=== PATIENT | female | born 1955 | race African-American/Black ===

== ENCOUNTER 2017-04-02 14:14 | Inpatient (IN) ==
[2017-04-02] MEDS ORDERED: ALBUTEROL 2.5 MG/3 ML NEB RESP TX STA ×2 (16:33→16:35)
[2017-04-02 16:47] LABS: Basophils % 0.2 % (0.0-0.8); Eosinophils % 0.2 % (0.00-10.9); Hematocrit 37.5 VOL% (35.7-47.0); Hemoglobin 13.4 GM/DL (12.0-16.0); Immature Granulocytes % 0.7 %; Immature Granulocytes Absolute 0.06 #; Lymphocytes # 1.1 10*3/uL (1.4-4.0); Lymphocytes % 11.5 % (21.3-54.2); Mean Corpuscular HGB Conc 35.7 GM/DL (32-36); Mean Corpuscular Hemoglobin 32 PG (27-34); Mean Corpuscular Volume 90.6 FL (87-102); Mean Platelet Volume 10.7 FL (9.6-12.0); Monocytes # 0.5 10*3/uL (0.11-0.8); Monocytes % 5.2 % (1.7-12.7); Neutrophils # 7.5 10*3/uL (1.4-7.4); Neutrophils % 82.2 % (38.7-73.9); Platelet Count 139 T/CUMM (130-400); Red Blood Count 4.14 MC/CUMM (3.8-5.5); Red Cell Distribution Width 12.3 % (9.3-17.3); White Blood Count 9.2 T/CUMM (4-12)
[2017-04-02] MEDS ORDERED: methylPREDNISolone SOD SUC 125 MG/2 ML VIAL IV STA (16:49)
[2017-04-02 16:56] LABS: PT Patient Result 10.8 SECS; Partial Thromboplastin Time 28.2 SECS (0-40)
[2017-04-02 17:09] LABS: Alanine Aminotransferase 89 U/L (13-56); Albumin 3.8 G/DL (3.4-5.0); Alkaline Phosphatase 97 U/L (45-117); Aspartate Amino Transferase 104 U/L (0-37); Blood Urea Nitrogen 18 MG/DL (7-18); Calcium 8.7 MG/DL (8.5-10.1); Glucose 97 MG/DL (74-106); Magnesium 1.7 MG/DL (1.8-2.4); Osmolality,Calculated 245.1 MOS/KG (273-304); Potassium 4.4 MMOL/L (3.5-5.1); Sodium 121 MMOL/L (136-145); Total Protein 8.8 G/DL (6.4-8.3); Troponin I Only < 0.015 NG/ML (0.00-0.045)
[2017-04-02] MEDS ORDERED: methylPREDNISolone SOD SUC 125 MG/2 ML VIAL ONE (17:12)
[2017-04-02] MEDS ORDERED: AZITHROMYCIN INJ 500 MG in SODIUM CHLORIDE 0.9% 250 ML IV STA (18:07)
[2017-04-02] MEDS ORDERED: AZITHROMYCIN 500 MG VIAL IV ONE (18:44)
[2017-04-02 19:10] LABS: Apearance,Urine CLOUDY (Clear); Bacteria,Urine Occasional /HPF (Few); Bilirubin,Urine Negative (Negative); Blood, Urine Negative (Negative); Glucose,Urine (UA) Negative (Negative); Hyaline Casts,Urine 21 /LPF (0-3); Ketones,Urine 5 mg/dL (Negative); Mucus,Urine Occasional /LPF (Occasional); Nitrite,Urine Negative (Negative); Protein,Urine Negative; RBC,Urine 5 /HPF (0-4); Squamous Epithelial Cell,Urine Occasional /HPF (0-10); Urine Color Yellow (Yellow); Urine Specific Gravity 1.012 (1.001-1.035); Urine Urobilinogen < 2.0 EU/DL (0.2-1.0); WBC,Urine 4 /HPF (0-6)
[2017-04-02 19:15] LABS: Barbiturates Screen,Urine Negative (Negative); Benzodiazepines Screen,Urine Negative (Negative); Cannabinoid Screen,Urine Negative (Negative); Opiate Screen,Urine Negative (Negative); Phencyclidine Screen,Urine Negative (Negative)
[2017-04-02] MEDS ORDERED: ACETAMINOPHEN 325 MG TABLET PO PRN (20:58)
[2017-04-02] MEDS ORDERED: ONDANSETRON 4 MG/2 ML VIAL IV PRN (20:58)
[2017-04-02] MEDS ORDERED: ALBUTEROL 2.5 MG/3 ML NEB RESP TX PRN (20:58)
[2017-04-02] MEDS: SODIUM CHLORIDE 0.9% 1,000 ML IV SCH (21:18)
[2017-04-02] MEDS: ALBUTEROL/IPRATROPIUM 3 ML NEB RESP TX SCH (21:29)
[2017-04-02] MEDS: NICOTINE 21 MG/24 HR PATCH TRANSDERM SCH (21:55)
[2017-04-02 23:13] LABS: Troponin I Only < 0.015 NG/ML (0.00-0.045)
[2017-04-03] MEDS ORDERED: DEXTROMETHORPHAN ER 6 MG/ML 90 ML/BOTTLE PO PRN (00:39)
[2017-04-03] MEDS: ALBUTEROL/IPRATROPIUM 3 ML NEB RESP TX SCH ×4 (00:40→19:58)
[2017-04-03 01:14] LABS: Platelet Estimate Decreased
[2017-04-03 03:50] LABS: Basophils % 0.1 % (0.0-0.8); Hematocrit 33.9 VOL% (35.7-47.0); Hemoglobin 11.8 GM/DL (12.0-16.0); Immature Granulocytes % 0.6 %; Immature Granulocytes Absolute 0.06 #; Lymphocytes # 0.8 10*3/uL (1.4-4.0); Lymphocytes % 7.8 % (21.3-54.2); Mean Corpuscular HGB Conc 34.8 GM/DL (32-36); Mean Corpuscular Hemoglobin 32 PG (27-34); Mean Corpuscular Volume 92.9 FL (87-102); Mean Platelet Volume 10.9 FL (9.6-12.0); Monocytes # 0.2 10*3/uL (0.11-0.8); Monocytes % 2.2 % (1.7-12.7); Neutrophils # 8.9 10*3/uL (1.4-7.4); Neutrophils % 89.3 % (38.7-73.9); Platelet Count 140 T/CUMM (130-400); Red Blood Count 3.65 MC/CUMM (3.8-5.5); Red Cell Distribution Width 11.9 % (9.3-17.3)
[2017-04-03 04:03] LABS: Troponin I Only < 0.015 NG/ML (0.00-0.045)
[2017-04-03 04:09] LABS: Alanine Aminotransferase 73 U/L (13-56); Albumin 3.4 G/DL (3.4-5.0); Alkaline Phosphatase 78 U/L (45-117); Aspartate Amino Transferase 72 U/L (0-37); Bilirubin,Direct < 0.100 MG/DL (0.0-0.20); Bilirubin,Indirect 0.3 MG/DL (0.0-1.0); Bilirubin,Total < 0.39 MG/DL (0.2-1.0); Total Protein 7.6 G/DL (6.4-8.3)
[2017-04-03 04:10] LABS: Calcium 7.9 MG/DL (8.5-10.1); Osmolality,Calculated 256.6 MOS/KG (273-304); Potassium 4.5 MMOL/L (3.5-5.1); Risk Ratio 3.82; Thyroid Stimulating Hormone 0.411 uIU/ml (0.358-3.74); VLDL CHOLESTEROL 15.4 MG/DL
[2017-04-03 04:18] LABS: Band Neutrophils 10 % (0-10); Lymphocytes 9 % (20-55); Segmented Neutrophils 79 % (50-85)
[2017-04-03 04:20] LABS: Platelet Estimate Normal; Total Cells Counted 100
[2017-04-03 05:06] LABS: Hepatitis A Ab IgM Quant 0.21 Index; Hepatitis A Ab IgM Result Negative (Negative); Hepatitis B Core IgM Quant 0.22 Index; Hepatitis B Core IgM Result Negative (Negative); Hepatitis B Surface Ag Quant < 0.10 Index; Hepatitis B Surface Ag Result Negative (Negative); Hepatitis C Virus Ab Quant 0.06 Index; Hepatitis C Virus Ab Result Negative (Negative)
[2017-04-03] MEDS: ALBUTEROL 2.5 MG/3 ML NEB RESP TX SCH (07:35)
[2017-04-03] MEDS ORDERED: cloNIDine 0.1 MG TABLET PO SCH (09:00)
[2017-04-03] MEDS ORDERED: cloNIDine 0.1 MG TABLET ONE (09:26)
[2017-04-03] MEDS ORDERED: PANTOPRAZOLE 40 MG TABLET PO ONE (09:26)
[2017-04-03] MEDS ORDERED: amLODIPine 5 MG TABLET ONE (09:26)
[2017-04-03] MEDS: PANTOPRAZOLE 40 MG TABLET PO SCH (09:43)
[2017-04-03] MEDS: amLODIPine 10 MG TABLET PO SCH (09:43)
[2017-04-03] MEDS: MONTELUKAST 10 MG TABLET PO SCH (11:00)
[2017-04-03] MEDS ORDERED: AZITHROMYCIN INJ 500 MG in SODIUM CHLORIDE 0.9% 250 ML IV SCH (17:00)
[2017-04-03] MEDS: NICOTINE 21 MG/24 HR PATCH TRANSDERM SCH (17:18)
[2017-04-03] MEDS: SODIUM CHLORIDE 0.9% 1,000 ML IV SCH ×2 (17:18→18:54)
[2017-04-03] MEDS: guaiFENesin/DM ER 600-30 MG TABLET PO SCH (21:59)
[2017-04-03] MEDS: BENZONATATE 100 MG CAPSULE PO SCH (21:59)
[2017-04-03] MEDS: DOXYCYCLINE HYCLATE 100 MG CAPSULE PO SCH (21:59)
[2017-04-04] MEDS: ALBUTEROL/IPRATROPIUM 3 ML NEB RESP TX SCH ×3 (00:24→13:07)
[2017-04-04 05:18] LABS: Basophils % 0.1 % (0.0-0.8); Hematocrit 31.6 VOL% (35.7-47.0); Hemoglobin 11.1 GM/DL (12.0-16.0); Immature Granulocytes % 0.8 %; Immature Granulocytes Absolute 0.09 #; Lymphocytes # 1.4 10*3/uL (1.4-4.0); Lymphocytes % 12.3 % (21.3-54.2); Mean Corpuscular HGB Conc 35.1 GM/DL (32-36); Mean Corpuscular Hemoglobin 32 PG (27-34); Mean Corpuscular Volume 90.8 FL (87-102); Mean Platelet Volume 10.6 FL (9.6-12.0); Monocytes # 0.8 10*3/uL (0.11-0.8); Monocytes % 6.7 % (1.7-12.7); Neutrophils # 9.2 10*3/uL (1.4-7.4); Neutrophils % 80.1 % (38.7-73.9); Platelet Count 195 T/CUMM (130-400); Red Blood Count 3.48 MC/CUMM (3.8-5.5); Red Cell Distribution Width 12.3 % (9.3-17.3); White Blood Count 11.5 T/CUMM (4-12)
[2017-04-04 05:49] LABS: Calcium 8.1 MG/DL (8.5-10.1); Osmolality,Calculated 263.8 MOS/KG (273-304); Potassium 4.4 MMOL/L (3.5-5.1)
[2017-04-04 06:03] LABS: Band Neutrophils 1 % (0-10); Hypochromasia 1+; Lymphocytes 5 % (20-55); Platelet Estimate Adequate; Segmented Neutrophils 89 % (50-85); Total Cells Counted 100
[2017-04-04 06:04] LABS: Giant Platelets Few; Ovalocytes Slight
[2017-04-04] MEDS: SODIUM CHLORIDE 0.9% 1,000 ML IV SCH ×2 (07:40→12:23)
[2017-04-04] MEDS: BENZONATATE 100 MG CAPSULE PO SCH (09:02)
[2017-04-04] MEDS: amLODIPine 10 MG TABLET PO SCH ×2 (09:02→09:29)
[2017-04-04] MEDS: DOXYCYCLINE HYCLATE 100 MG CAPSULE PO SCH (09:02)
[2017-04-04] MEDS: MONTELUKAST 10 MG TABLET PO SCH (09:03)
[2017-04-04] MEDS: guaiFENesin/DM ER 600-30 MG TABLET PO SCH (09:03)
[2017-04-04] MEDS: NICOTINE 21 MG/24 HR PATCH TRANSDERM SCH (09:03)
[2017-04-04] MEDS: PANTOPRAZOLE 40 MG TABLET PO SCH (09:03)
[2017-04-04] MEDS: ALBUTEROL 2.5 MG/3 ML NEB RESP TX SCH (11:27)
[2017-04-04 12:28] VITALS: BP 151/77
== END 2017-04-04 15:34 | disposition home or self-care (01) | DRG 191 ==
LOC: N.ED 14:14 → N.4E 18:04
PROVIDERS: ADMIT Hospitalist; ATTEND Hospitalist